=== PATIENT | male | born 1955 | race African-American/Black ===

== ENCOUNTER 2019-05-02 20:56 | Emergency (ER) | payer OTHER ==
[~2019-05-02] VITALS: Ht 175.3 cm; Wt 91.6 kg
[2019-05-02] MEDS ORDERED: FLOMAX0.4 MG PO (21:13)
[2019-05-02] MEDS ORDERED: ASA81BEC PO (21:13)
[2019-05-02] MEDS ORDERED: HYDRALAZINE 2525 M1 PO (21:14)
[2019-05-02] MEDS ORDERED: WELLBUTRIN SR150 M1 PO (21:15)
[2019-05-02] MEDS ORDERED: PROSCAR 5MG TABL5 M1 PO (21:16)
[2019-05-02 21:37] LABS: HEMATOCRIT 44.9 % (42.0-52.0); HEMOGLOBIN 14.4 gm/dL (14.0-18.0); MCH 27.7 pg (26.0-34.0); MCV 86.6 fL (80.0-100.0); PLATELET COUNT 187 thou/uL (150-400); RBC 5.19 mil/uL (4.50-6.00); RDW 14.9 % (10.5-14.5); WBC 3.7 thou/uL (4.0-11.0)
[2019-05-02 22:16] LABS: ALBUMIN 3.6 g/dL (3.4-5.0); DIRECT BILIRUBIN < 0.1 mg/dL (<0.1-0.2); SGOT 22 U/L (15-37); SGPT 28 U/L (30-65); TOTAL BILIRUBIN 0.2 mg/dL (<0.1-1.0); TOTAL PROTEIN 7.2 g/dL (6.4-8.2)
[2019-05-02 22:19] LABS: ANION GAP 6 mmol/L (7-16); BUN 13 mg/dL (7-18); CALCIUM 9.3 mg/dL (8.5-10.1); CHLORIDE 104 mmol/L (98-107); CO2 29 mmol/L (21-32); CREATININE 1.5 mg/dL (0.7-1.3); GLUCOSE 98 mg/dL (74-106); POTASSIUM 3.8 mmol/L (3.5-5.1); SODIUM 139 mmol/L (136-145)
[2019-05-02 22:28] LABS: TROPONIN-I <0.06 ng/mL (<0.06)
[2019-05-02 22:39] LABS: ABSOLUTE NEUTROPHILS 1.1 thou/uL (1.4-8.2)
[2019-05-02 22:40] LABS: PLATELET ESTIMATE NORMAL
[2019-05-03] MEDS ORDERED: PEPCID20 MG PO (00:30)
[2019-05-03 00:56] VITALS: BP 122/89
--- NOTE | 2019-05-03 09:40 | EKG ---
[facility] [place] [address] ELECTROCARDIOGRAM REPORT Name: FELIBERTO BAER Room #: [facility]#: [id number] Admission: 05/02/19 Attend Phys: Discharge: 05/03/19 Date of : 59 Report #: [id number] THIS REPORT FOR: cc: BEBA Pineda family physician/PCP BEBA - Miriam family physician/PCP James Cox MD [facility] THIS REPORT FOR: //name// [facility] ED Test Date: 2019-05-02 Test Time: 21:01:15 Pat Name: FELIBERTO BAER Department: Room: Gender: Supervisor Contingents: sandra : 1955 Requested By: Lanette Pardo Order Number: [id number] MD: James Cox Measurements Intervals [place] Rate: 67 P: 36 OR: 142 QRS: -7 QRSD: 84 T: 58 QT: 419 QTc: 443 Interpretive Statements Sinus rhythm RSR' in V1 or V2, probably normal variant Compared to ECG 10/10/2016 13:59:13 RSR' in V1 or V2 now present Electronically Signed On 05-03-2019 9:38:56 [employer] by James Cox [email or web address] <ELECTRONICALLY SIGNED> By: James Cox MD, FAC 05/03/1936 00 00 James Cox MD, FAC /EPI
== END 2019-05-03 00:57 | disposition home or self-care (01) ==
LOC: ER 20:56
PROVIDERS: Emergency Medicine Emergency Medical Services
DX: R07.89 Other chest pain (principal)